=== PATIENT | female | born 1955 | race Caucasian/White ===

== ENCOUNTER 2017-01-01 14:01 | Inpatient (IN) ==
--- NOTE | 2016-12-31 16:29 | Discharge Summary ---
<Alana Calderon E - Last Filed: 12/31/16 16:26> Date of Encounter: 12/31/16 - Discharge Diagnosis (1) Arthritis of left hip Priority: Primary Status: Chronic (2) Osteoporosis Priority: Secondary Status: Chronic Qualifiers: Osteoporosis type: unspecified Presence of current pathological fracture: unspecified Qualified Code(s): M81.0 - Age-related osteoporosis without current pathological fracture (3) History of hepatitis Priority: Secondary Status: Chronic (4) HLD (hyperlipidemia) Priority: Secondary Status: Chronic Qualifiers: Hyperlipidemia type: unspecified Qualified Code(s): E78.5 - Hyperlipidemia , unspecified (5) History of rheumatic fever Priority: Secondary Status: Chronic (6) Psychiatric disorder Priority: Secondary Status: Chronic (7) BMI 27.0-27.9,adult Priority: Secondary Status: Chronic - Discharge Medications Home Medications: Aspirin Enteric Coated [Aspirin EC] 325 mg PO DAILY #21 tablet. 12/31/16 [Rx] OxyCODONE Immed Rel [Roxicodone 5 MG] 5 - 10 mg PO Q6HR PRN #40 tablet 12/31/16 [Rx] Alendronate Sodium [Fosamax] 70 mg PO FR 01/01/17 [History] Aspirin [Lo-Dose Aspirin EC] 81 mg PO DAILY 01/01/17 [History] Atorvastatin [Lipitor] 40 mg PO HS 01/01/17 [History] Cholecalciferol (D-3) [Vitamin D] 5,000 unit PO DAILY 01/01/17 [History] DiphenhydraMINE [Benadryl] 25 mg PO Q6HR PRN 01/01/17 [History] Docusate [Colace] 200 mg PO BID 01/01/17 [History] Esomeprazole Magnesium [Nexium] 40 mg PO BID 01/01/17 [History] Gabapentin [Neurontin] 300 mg PO HS 01/01/17 [History] Losartan [Cozaar] 25 mg PO DAILY 01/01/17 [History] Lurasidone [Latuda] 20 mg PO DAILY 01/01/17 [History] Meloxicam [Mobic] 15 mg PO DAILY 01/01/17 [History] Nitroglycerin [Nitrostat] 0.4 mg SL Q5M PRN 01/01/17 [History] Trospium Chloride [Trospium Chloride ER] 60 mg PO DAILY 01/01/17 [History] diazePAM [Valium] 2 mg PO TID PRN 01/01/17 [History] Allergies/Adverse Reactions: Allergies Amoxicillin Allergy (Verified 01/01/17 14:26) Hives Cortisone Allergy (Verified 01/01/17 14:26) Hives iodine Allergy (Verified 01/01/17 14:26) Blister linaclotide [From Linzess] Allergy (Verified 01/01/17 14:26) Rash Primary care physician: Satnam Wilson MD - Patient Status Disposition: Home, Self-Care Condition: Good - Discharge Instructions Follow Up With: Satnam Wilson MD [Primary Care Provider] - Cristian Nava MD [Partnered Physician] - 01/11/17 2:15 pm Additional Instructions: Discharge Instructions: Total Hip Replacement Please call [facility] ([phone]), your Primary Care Physician, or report to the Emergency Room if you have any of the following symptoms: Nausea, vomiting, fever greater that 101.5, swelling, chest pain, shortness of breath, increased pain/redness/drainage/odor for your incision site, numbness/ tingling, or any other concerning symptoms. ACTIVITY:Weight-bearing as tolerated for 8 weeks with hip dislocation precautions that physical therapy taught you. You may progress as tolerated under the guidance of your physical therapist. You do not need to sleep with a pillow between your legs. You can also seep on the operative side or on your stomach. MEDICATIONS: Upon discharge resume your home medications. Take all the medications as prescribed. Take a stool softener if taking narcotic pain medications. Stool softeners are only effective if you drink enough fluids. Drink 6-8 glass of water or fluids a day, unless this is not allowed for another health problem. Despite using stool softeners, if you haven't had a bowel movement in 3 days, please switch to a gentle laxative. Gentle laxatives are sold over the counter. You should have a bowel movement within 24 hours, if not call the office. You will be discharged from the hospital with a prescription for pain medication. You are encouraged to decrease the use of narcotic pain medication as tolerated. Should you require a refill, please call the office. [facility] prescribes narcotic pain medication for only 4-6 weeks after surgery. If you require pain medication beyond this time period, you may be referred to your Primary Care Physician or to the Pain Clinic for further evaluation. Plan ahead for refills on pain medication as many narcotics either need to be picked up at the office or mailed. It is best to call 48-72 hours in advance of needing a prescription refill so you don't run out of medication. To help control the post-operative pain, you may take NSAIDs (Aleve,Advil, Motrin, ibuprofen, naprosyn) or Tylenol as prescribed on the bottle in addition to the pain medication. ANTICOAGULATION (blood thinners): Continue your Aspirin, Lovenox or Coumadin as prescribed to help prevent a blood clot in the leg or in the lungs. As long as your incision remains dry and you tolerate the NSAIDs (Aleve, Advil, Motrin, Ibuprofen, Naprosyn), it is OK to use the NSAIDS while you are taking your anticoagulation medication. Should your incision start to drain, stop the NSAID and contact our office. Common symptoms of blood clot in the legs include: localized pain, swelling, calf tenderness, redness or discoloration of the skin. Blood clot in the lung symptoms include: shortness of breath, rapid pulse, sweating, and chest pain that worsens with deep breathing, coughing up blood, lightheadedness, feelings of anxiety. If you experience any of these symptoms notify your physician immediately, go to the emergency room, or if having trouble breathing, call 911. WOUND CARE: Leave the dressing on for 7 to 10days. You may change the dressing if it is saturated greater than 50%. Do not get the dressing wet at anytime. Wash your hands with antibacterial soap, rinse and dry prior to any wound care. If you have enrique the visiting nurse or rehab facility can remove the stapes 10-14 days after surgery and place steri-strips across the wound. Leave the steri-strips in place until they fall off on their own. You may let water from the shower run on top of the steri-strips. If you do not have a visiting nurse or rehab facility, you will need to return to the office at 10-14 days for the enrique to be removed. If you have itching or redness around the dressing call the office. FOLLOW-UP: Please follow up with your surgeon in the orthopedic clinic in 6 weeks from the day of surgery. If you have enrique that need to be removed, you will need to come back to the office in 10-14 days from the day of surgery. - Hospital Course Hospital course: Ms. Acevedo is a 61 year old female - Time Spent with Patient Total time spent providing and/or coordinating discharge services: - VTE Documentation of Mechanical Device: Venous foot pump, device <Kristi Majano - Last Filed: 01/02/17 17:15> Date of Encounter: 01/02/17 - Discharge Diagnosis (1) Status post total hip replacement, left Priority: Primary Status: Acute Comments: Uneventful post-operative course. Opsite dressing, leave intact until first post-operative visit. If dressing becomes >50% saturated, contact office, remove dressing and place appropriate dressing in its place. Do not allow for dressing to get wet. [place] in place, plan to remove at post-operative day #14-16. Total Joint Precautions x 6 weeks Apply cold therapy wrap 3-6x/day for 20 minutes at a time. Encourage ambulation throughout the day Use Incentive spirometer 10x/hour. Elevate affected extremity as tolerated. Brace: Wear hip Abductor pillow at night x 6 week Labs on day of discharge: Labs from last 24 hours 01/02/17 01/02/17 01/01/17 04:57 04:57 17:56 Hgb 10.3 L D 12.1 Hct 31.8 L 37.0 Sodium 135 L Potassium 4.2 Chloride 102 Carbon Dioxide 26 BUN 15 Creatinine 0.86 Est GFR ( Amer) > 60 Est GFR (Non-Af Amer) > 60 BUN/Creatinine Ratio 17 Glucose 162 H Calculated Osmolality 284 Calcium 8.6 - Impressions ITS Impressions Hip X-Ray 01/01/17 01:00 IMPRESSION: 1. There is a left total hip arthroplasty in satisfactory position. There is no evidence of instrumentation loosening or failure. D/ / 01/01/2017 18:26:53 Jamil Gibson MD / fatou Interpreting Provider: Jamil Gibson MD Date of admission: 01/01/17 19:26 Primary care physician: Satnam Wilson MD Consults: 01/01/17 20:17 Consult to Nurse Navigator [CONS] Routine Comment: ortho navigator Consult to Occupational Therapy [CONS] Routine Comment: Evaluate, develop and implement POC Reason for Consult: total hip replacement Consult to Physical Therapy [CONS] Routine Comment: Evaluate, develop and implement POC Reason for Consult: total hip replacement Consult to Trailer Chief [CONS] Routine Reason for SW Consult: post op joint replacement RT Post Op Consult [CONS] Routine - Hospital Course Hospital course: Ms. Acevedo is a 61 year old female - Time Spent with Patient Total time spent providing and/or coordinating discharge services: <Cristian Nava - Last Filed: 01/03/17 09:31> Date of Encounter: 01/03/17 Time of Encounter: 09:30 - Discharge Diagnosis (1) Arthritis of left hip Priority: Primary Status: Chronic (2) History of hepatitis Priority: Secondary Status: Chronic (3) Osteoporosis Priority: Secondary Status: Chronic Qualifiers: Osteoporosis type: unspecified Presence of current pathological fracture: unspecified Qualified Code(s): M81.0 - Age-related osteoporosis without current pathological fracture (4) HLD (hyperlipidemia) Priority: Secondary Status: Chronic Qualifiers: Hyperlipidemia type: unspecified Qualified Code(s): E78.5 - Hyperlipidemia , unspecified (5) History of rheumatic fever Priority: Secondary Status: Chronic (6) Psychiatric disorder Priority: Secondary Status: Chronic (7) BMI 27.0-27.9,adult Priority: Secondary Status: Chronic (8) Acute blood loss anemia Priority: Primary Status: Acute (9) Status post total hip replacement, left Priority: Primary Status: Acute Primary care physician: Satnam Wilson MD - Patient Status Functional capacity at discharge: uses cane/walker Overall status at discharge: patient is back to baseline - Hospital Course Hospital course: Ms. Acevedo is a 61 year old female Status post left total hip replacement. Patient had an uneventful postop course received antibiotics and physical therapy. Patient having problems with itching related to pain medication. Discharge home with Benadryl and aspirin for DVT prophylaxis. - Time Spent with Patient Total time spent providing and/or coordinating discharge services:
--- NOTE | 2017-01-01 14:13 | History & Physical Report ---
Date of Encounter: 01/01/17 Time of Encounter: 14:12 24 Hour HP Update - Instructions Instructions: If the History and Physical is less than 30 days old and was completed prior to A.M. admission and or procedure and has NOT been updated on calendar day of procedure please complete this update prior to performing procedure. - Update Patient reports changes in Medical Condition: No Changes in examination, assessment, or condition: No Changes in Medication: No Preop tests/diagnostics Reviewed: Yes Surgery Remains Indicated: Yes Consent for Planned Operative Procedure(s) Verified: Yes - Pre-Operative Checklist Preoperative Checklist Indicated: No Prophylactic Antibiotic Ordered: Yes Is VTE Prophylaxis Indicated?: Yes
[2017-01-01] MEDS ORDERED: CeFAZolin Pre 2,000 MG/100 ML 2,000 MG/100 ML BAG IVPB ONE (14:23)
--- NOTE | 2017-01-01 14:23 | Anesthesia Evaluation PreOp ---
Date of Encounter: 01/01/17 Time of Encounter: 14:20 - Past History Planned Operation: Left Total Hip Arthroplasty Cardiac History: HTN, Hyperlipidemia Pulmonary History: Former smoker (quit 9 years ago, smoked for 25+ years) GLUE MAKER BONE History: Denies Any Significant HX Other Medical History: GERD, Other (anxiety) Anesthesia History: No Prior Anesthetic Complications, Past Anesthesia Alcohol Use: none Drug use: none Medications and Allergies Aspirin Enteric Coated [Aspirin EC] 325 mg PO DAILY #21 tablet. 12/31/16 [Rx] OxyCODONE Immed Rel [Roxicodone 5 MG] 5 - 10 mg PO Q6HR PRN #40 tablet 12/31/16 [Rx] Alendronate Sodium [Fosamax] 70 mg PO FR 01/01/17 [History] Aspirin [Lo-Dose Aspirin EC] 81 mg PO DAILY 01/01/17 [History] Atorvastatin [Lipitor] 40 mg PO HS 01/01/17 [History] Cholecalciferol (D-3) [Vitamin D] 5,000 unit PO DAILY 01/01/17 [History] DiphenhydraMINE [Benadryl] 25 mg PO Q6HR PRN 01/01/17 [History] Docusate [Colace] 200 mg PO BID 01/01/17 [History] Esomeprazole Magnesium [Nexium] 40 mg PO BID 01/01/17 [History] Gabapentin [Neurontin] 300 mg PO HS 01/01/17 [History] Losartan [Cozaar] 25 mg PO DAILY 01/01/17 [History] Lurasidone [Latuda] 20 mg PO DAILY 01/01/17 [History] Meloxicam [Mobic] 15 mg PO DAILY 01/01/17 [History] Nitroglycerin [Nitrostat] 0.4 mg SL Q5M PRN 01/01/17 [History] Trospium Chloride [Trospium Chloride ER] 60 mg PO DAILY 01/01/17 [History] diazePAM [Valium] 2 mg PO TID PRN 01/01/17 [History] Allergies Amoxicillin Allergy (Verified 01/01/17 14:26) Hives Cortisone Allergy (Verified 01/01/17 14:26) Hives iodine Allergy (Verified 01/01/17 14:26) Blister linaclotide [From Linzess] Allergy (Verified 01/01/17 14:26) Rash - Meds/Allergy Pre-op Review Medications Reviewed: Yes Allergies Reviewed: Yes Beta Blockers on Current Med List: No Anesthesia Results - Labs Laboratory Tests 12/25/16 12/25/16 12/25/16 16:03 16:03 16:03 WBC 6.2 Hgb 12.5 Hct 38.3 Plt Count 240 PT 10.8 INR 1.0 APTT 32.9 Sodium 141 Potassium 3.6 BUN 11 Creatinine 0.78 - Imaging EKG: report reviewed (07/07/2016 SR) Additional studies: 12/08/2013 LHC E F 60% minimal atherosclerotic CAD Anesthesia Exam O2 Sat Height 1.6 m Height 1.6 m Weight 68.946 kg Weight 68.946 kg O2 Sat by Pulse Oximetry 98 Vital Signs Temp Pulse Resp BP Pulse Ox 98.3 F 76 18 123/87 98 01/01/17 14:29 01/01/17 14:29 01/01/17 14:29 01/01/17 14:29 01/01/17 14:29 Height: 5'3'' Weight: 152 lbs NPO (# of Hours): 8 Pain Scale: 0 Pain Scale Used: Numeric (1 - 10) - HEENT Pupil (Motor): EOMI Mallampati: II Teeth: Edentulous Denture Type: Upper: Complete, Lower: Complete Oral Opening: Greater than 3 - GLUE MAKER BONE LOC: Oriented GLUE MAKER BONE Motor: Normal RUE, Normal LUE, Normal RLE, Normal LLE, Normal Face GLUE MAKER BONE Sensory: Normal: RUE, LUE, RLE, LLE, Face - Cardiac Rhythm: Regular Murmur: None - Pulmonary Breath Sounds: bilateral Clear Respiratory Effort: Symmetrical Anesthesia Assess/Plan ASA Score: 2 Modified [place] Scale for Level of Consciousness: Cooperative, oriented, and tranquil Anesthetic Plan: General, Regional Monitoring Plan: Standard Monitors Recovery Plan: PACU
[2017-01-01] MEDS ORDERED: Ringers Solution, Lactated 1,000 ML IVC SCH ×2 (14:30→20:17)
[2017-01-01] MEDS ORDERED: *HR* HYDROmorphone (PF) 1 MG/ML SYRINGE IVP PRN ×2 (15:18→20:17)
[2017-01-01] MEDS ORDERED: *HR* Meperidine 25 MG/ML SYRINGE IVP PRN (15:18)
[2017-01-01] MEDS ORDERED: *HR* Promethazine 25 MG/ML VIAL IVP PRN (15:18)
[2017-01-01] MEDS ORDERED: Ondansetron 4 MG/2 ML VIAL ONE (15:22)
[2017-01-01] MEDS ORDERED: *HR* Propofol 200 MG/20 ML VIAL IVP ONE ×2 (15:22→15:23)
[2017-01-01] MEDS ORDERED: Lidocaine -MPF 2% 2 ML VIAL ONE (15:22)
[2017-01-01] MEDS ORDERED: *HR* Succinylcholine 200 MG/10 ML VIAL IVP ONE (15:22)
[2017-01-01] MEDS ORDERED: *HR* FentaNYL (PF) 100 MCG/2 ML VIAL ONE (15:23)
[2017-01-01] MEDS ORDERED: *HR* Midazolam HCl 2 MG/2 ML VIAL ONE ×2 (15:23→16:13)
[2017-01-01] MEDS ORDERED: Ketorolac 30 MG/ML VIAL ONE (15:36)
[2017-01-01] MEDS ORDERED: Bupivacaine/Clonidine Syringe 1 EACH SYRINGE ONE ×2 (16:14→16:17)
--- NOTE | 2017-01-01 17:05 | Anesthesia Procedures ---
Date of Encounter: 01/01/17 Time of Encounter: 16:30 Procedures: Anesthesia - Nerve Block Procedure Date: 01/01/17 Time: 16:30 Checklist: Correct Patient Identifier, Correct procedure, History checked Correct side: Left Blood Thinner: No Monitor Applied: EKG, BP, Pulse Oximetry Supplemental Oxygen via Nasal Cannula (L/min): 2 Sedation: Versed (mg): 4 Sedation: Fentanyl (mcg): 100 Indication: Post Op Analgesia Block Type: Other (fascia illiaca block) Sterile Technique: Yes Ultrasound used: Yes Anatomy identified: Yes Visual spread of Local: Yes Neuro Stimulation: No Blood on Needle Aspiration: No Smooth Injection of Local: Yes Pain with Injection of Local: No Prep: Chlorhexadine Needle: 22 x 50 mm Stimuplex Local: 0.25% Bupivicaine w/Clonidine 20 mcg/cc Volume (cc): 60 Number of Attempts: 1 Complications: None/effective block Vitals: vss
[2017-01-01] MEDS ORDERED: *HR* HYDROmorphone 2 MG/ML SYRINGE ONE (17:11)
[2017-01-01] MEDS ORDERED: EPHEDrine 50 MG/ML VIAL ONE (17:25)
--- NOTE | 2017-01-01 17:26 | Orthopedic Operative Note ---
Date of procedure: 01/01/17 Pre-op diagnosis: Left hip arthritis Post-op diagnosis: same Procedure: Procedure: Left Total Hip Replacment Estimated blood loss: 200 cc Hardware: Metal and polyethylene replacement. Biomet DM Cup: 50 G7 fin cup Femoral size 12 echo full profile lateralized stem Head: -6 head with Aneta Procedural Notes: Grade 4 arthritic changes femoral head acetabular socket. Operative procedure: The patient was brought to the operating room and placed on the operating room table. After general anesthesia was administered the patient was placed in the lateral decubitus position with the operative leg up. All pressure points were padded appropriately and the head was stabilized in the neutral position. The operative extremity was prepped and draped in the sterile surgical fashion patient received IV antibiotic prior to skin incision. A standard posterior approach is made to the operative hip, the incision was made through the skin and subcutaneous tissue hemostasis was obtained with Bovie cautery. Using careful sharp dissection the fascia was identified and incised exposing the external rotators. The external rotators were released off the greater trochanter and tagged with #2 FiberWire suture. The capsule was T'd open and the hip was brought into internal rotation. Patient noted to have grade 4 arthritic changes femoral head. The femoral neck cut was made at the appropriate level. An anterior capsulotomy was performed for the anterior retractor. Soft tissues removed from the acetabulum. Patient noted to have grade 4 arthritic changes acetabulum. Acetabulum was first reamed medially, and then reamed in 15 degrees of anteversion and 45 degrees off the horizontal. It was reamed up to the appropriate size 50. The appropriate-sized 50 acetabular cup was impacted in place in 15 degrees of anteversion and 45 degrees off the horizontal. This had good fit and fixation. The hip was brought back in to internal rotation and prepared with the box spring upholsterer followed by the canal finder followed by broaching process in 20 degrees anteversion. It was broached up to the appropriate size 12 . The femoral implant was impacted in place in 20 degrees of anteversion. Trial reduction found the hip to be stable with - 6 head and Aneta. The trials were removed and the real implants were impacted in place. The hip was reduced, patient had apparent equal leg lengths. The hip had excellent stability with forward flexion to 90 degrees adduction of 30 degrees and internal rotation of 60 degrees. The hip had no shuck. The hips after 2 minutes with a Betadine saline solution. It was irrigated out with 2 L of pulse irrigation. The PA closed the hip. Fascia was closed with a running #2 PDS suture. The deep tissue was irrigated and closed deep with #1 PDS suture superficially with 0 PDS suture and skin was closed with Dermabond and skin enrique. The patient was placed in a sterile dressing and abduction pillow. The patient was extubated and transferred to the recovery room in stable condition. Anesthesia: GETA Surgeon: Cristian Nava Automatic Bandsaw Tender: Kristi Majano Condition: stable Disposition: PACU
[2017-01-01] MEDS ORDERED: *HR* Enoxaparin 30 MG/0.3 ML SYRINGE SQ SCH (18:00)
[2017-01-01 18:12] LABS: Hemoglobin 12.1 g/dL (11.5-15.4)
--- NOTE | 2017-01-01 18:57 | Anesthesia Evaluation Post Op ---
Date of Encounter: 01/01/17 Time of Encounter: 19:00 - Vital Signs Vital Signs: Vital Signs/O2 Sat/Glucose, Most Current Temp Pulse Resp BP Pulse Ox 01/01/17 18:42 88 17 131/80 95 01/01/17 18:32 91 16 124/89 96 01/01/17 18:22 97.8 F 90 18 141/91 96 01/01/17 18:12 90 12 156/87 91 01/01/17 18:02 88 12 148/106 93 01/01/17 17:52 97.1 F L 90 12 145/96 97 01/01/17 16:10 66 18 107/75 100 - Lungs Lungs: Clear Ascult./Percussion - Airway Airway: Non-obstructed - Cardiovascular Regular Rate - Mental Status Mental Status: Alert & Oriented, Answers Appropriately - Pain Pain Scale: 2 - Nausea Vomiting Nausea Vomiting: Not Present - Hydration Hydration: Ice chips - Discharge PostOp Status: Transfer Patient to floor
[2017-01-01] MEDS ORDERED: MOM Conc 10 ML UD.LIQ PO PRN (20:17)
[2017-01-01] MEDS ORDERED: diazePAM 2 MG TABLET PO PRN (20:17)
[2017-01-01] MEDS ORDERED: *HR* OxyCODONE Immed Rel 5 MG TABLET PO PRN (20:17)
[2017-01-01] MEDS ORDERED: Naloxone 0.4 MG/ML INJ IVP PRN (20:17)
[2017-01-01] MEDS ORDERED: Temazepam 15 MG CAPSULE PO PRN (20:17)
[2017-01-01] MEDS ORDERED: Nitroglycerin 0.4 MG TAB.SUBL SL PRN (20:17)
[2017-01-01] MEDS ORDERED: Sennosides 8.6 MG TABLET PO PRN (20:17)
[2017-01-01] MEDS ORDERED: Ondansetron 4 MG/2 ML VIAL IVP PRN (20:17)
[2017-01-01] MEDS: Ascorbic Acid 500 MG TABLET PO SCH (22:01)
[2017-01-01] MEDS: Gabapentin 300 MG CAPSULE PO SCH (22:01)
[2017-01-01] MEDS: ceFAZolin 2,000 MG in D5% in Water 100 ML IVPB SCH (22:01)
[2017-01-01] MEDS: *HR* OxyCODONE Immed Rel 5 MG TABLET PO PRN (22:04)
[2017-01-02] MEDS: ceFAZolin 2,000 MG in D5% in Water 100 ML IVPB SCH (00:39)
[2017-01-02] MEDS: *HR* Enoxaparin 30 MG/0.3 ML SYRINGE SQ SCH ×2 (05:21→16:40)
[2017-01-02] MEDS: *HR* OxyCODONE Immed Rel 5 MG TABLET PO PRN ×4 (05:22→20:53)
[2017-01-02 05:45] LABS: Hematocrit 31.8 % (35.3-44.9)
[2017-01-02 05:52] LABS: BUN/Creatinine Ratio 17 (6-26); Blood Urea Nitrogen 15 mg/dL (7-20); Calcium 8.6 mg/dL (8.6-10.8); Carbon Dioxide 26 mEq/L (19-29); Chloride 102 mEq/L (98-109); Glucose 162 mg/dL (70-99); Osmolality,Calculated 284 (280-300); Potassium 4.2 mEq/L (3.5-4.5); Sodium 135 mEq/L (136-145); eGFR For African Americans > 60 (> 60); eGFR For Non-African Americans > 60 (> 60)
[2017-01-02 05:53] LABS: Hemoglobin 10.3 g/dL (11.5-15.4)
--- NOTE | 2017-01-02 06:41 | Orthopedics Progress Note ---
Date of Encounter: 01/02/17 Time of Encounter: 06:40 - Assessment and Plan (1) Arthritis of left hip Current Visit: Yes Status: Chronic (2) History of hepatitis Current Visit: Yes Status: Chronic (3) Osteoporosis Current Visit: Yes Status: Chronic Qualifiers: Osteoporosis type: unspecified Presence of current pathological fracture: unspecified Qualified Code(s): M81.0 - Age-related osteoporosis without current pathological fracture (4) HLD (hyperlipidemia) Current Visit: Yes Status: Chronic Qualifiers: Hyperlipidemia type: unspecified Qualified Code(s): E78.5 - Hyperlipidemia , unspecified (5) History of rheumatic fever Current Visit: Yes Status: Chronic (6) Psychiatric disorder Current Visit: Yes Status: Chronic (7) BMI 27.0-27.9,adult Current Visit: Yes Status: Chronic Subjective Interval history: Patient was seen this morning doing well without complaints. Afebrile vital signs stable. Operative extremity: Neurovascularly intact Dressing clean dry and intact Calves nontender Assessment and plan: Continue with postoperative care Hematocrit 31 Objective Vital signs: Vital Signs Temp Pulse Resp BP Pulse Ox 01/02/17 04:10 98.6 F 77 14 95/66 98 01/02/17 01:00 98.4 F 81 15 109/71 97 01/01/17 20:38 98.0 F 96 18 115/61 95 01/01/17 20:08 95 01/01/17 20:05 97.6 F 88 16 122/74 01/01/17 19:50 98.3 F 93 16 119/79 95 01/01/17 18:52 98.2 F 90 14 134/94 99 01/01/17 18:42 88 17 131/80 95 01/01/17 18:32 91 16 124/89 96 01/01/17 18:22 97.8 F 90 18 141/91 96 01/01/17 18:12 90 12 156/87 91 01/01/17 18:02 88 12 148/106 93 01/01/17 17:52 97.1 F L 90 12 145/96 97 01/01/17 16:10 66 18 107/75 100 01/01/17 14:29 98.3 F 76 18 123/87 98 Intake and Output 01/01/17 01/01/17 01/02/17 15:59 23:59 07:59 Intake Total 100 / 100 Output Total 400 / 400 Balance -300 / -300 Intake: IV Fluids 100 / 100 Ancef 2,000 MG In 100 / 100 Dextrose 5% 100 ML @ 200 mls/hr IVPB Q8HR [facility] Rx#: [id number] Output: Urine 200 / 200 Estimated Blood Loss 200 / 200 Other: Weight 68.946 kg 76.7 kg Patient Weight 01/02/17 23:59 Weight 76.7 kg - Labs CBC & BMP: 01/02/17 04:57 01/02/17 04:57 Labs: Abnormal lab results Hgb 10.3 g/dL (11.5-15.4) L D 01/02/17 04:57 Hct 31.8 % (35.3-44.9) L 01/02/17 04:57 Sodium 135 mEq/L (136-145) L 01/02/17 04:57 Glucose 162 mg/dL (70-99) H 01/02/17 04:57 - VTE Documentation of Mechanical Device: Venous foot pump, device Consult Discharge Plan - Plan Referrals: Satnam Wilson MD [Primary Care Provider] -
[2017-01-02] MEDS: TROSPIUM CHLORIDE 60 MG PO SCH (07:52)
[2017-01-02] MEDS: Aspirin Enteric Coated 81 MG Tablet PO SCH (08:10)
[2017-01-02] MEDS: Multivit/Ca/Min/Fe/FA 1 TAB TABLET PO SCH (08:10)
[2017-01-02] MEDS: Cholecalciferol (D-3) 1,000 UNIT TABLET PO SCH (08:10)
[2017-01-02] MEDS: Ascorbic Acid 500 MG TABLET PO SCH ×2 (08:10→16:40)
[2017-01-02] MEDS: Lurasidone 20 MG TABLET PO SCH (08:10)
--- NOTE | 2017-01-02 17:15 | Event Note ---
Date of Encounter: 01/02/17 Time of Encounter: 13:00 Patient seen at bedside. Pain control: adequate All questions and concerns addressed. Educated on use of incentive spirometer, ambulation, and hydration. Patient educated on post-operative restrictions and care. Addressed: No new concerns, Wheelchair RX sent in afternoon for patient to go home D/C plan:.D/C 01/03 with outpatient PT
[2017-01-02] MEDS: Gabapentin 300 MG CAPSULE PO SCH (20:53)
[2017-01-03] MEDS: *HR* OxyCODONE Immed Rel 5 MG TABLET PO PRN ×3 (00:57→08:53)
[2017-01-03 05:19] LABS: Hematocrit 28.1 % (35.3-44.9); Hemoglobin 9.2 g/dL (11.5-15.4)
[2017-01-03 05:28] LABS: BUN/Creatinine Ratio 21 (6-26); Blood Urea Nitrogen 16 mg/dL (7-20); Calcium 8.3 mg/dL (8.6-10.8); Carbon Dioxide 26 mEq/L (19-29); Chloride 102 mEq/L (98-109); Glucose 100 mg/dL (70-99); Osmolality,Calculated 281 (280-300); Sodium 135 mEq/L (136-145); eGFR For African Americans > 60 (> 60); eGFR For Non-African Americans > 60 (> 60)
[2017-01-03 05:31] LABS: Potassium 3.8 mEq/L (3.5-4.5)
[2017-01-03] MEDS: *HR* Enoxaparin 30 MG/0.3 ML SYRINGE SQ SCH (06:04)
[2017-01-03 07:32] VITALS: BP 106/66
[2017-01-03] MEDS: Lurasidone 20 MG TABLET PO SCH (08:45)
[2017-01-03] MEDS: Ascorbic Acid 500 MG TABLET PO SCH (08:46)
[2017-01-03] MEDS: Aspirin Enteric Coated 81 MG Tablet PO SCH (08:46)
[2017-01-03] MEDS: Multivit/Ca/Min/Fe/FA 1 TAB TABLET PO SCH (08:46)
[2017-01-03] MEDS: Cholecalciferol (D-3) 1,000 UNIT TABLET PO SCH (08:47)
[2017-01-03] MEDS: TROSPIUM CHLORIDE 60 MG PO SCH (08:55)
[2017-01-05] MEDS ORDERED: Alendronate Sodium [Fosamax] 70 MG PO SCH (14:55)
== END 2017-01-03 14:06 | disposition home or self-care (01) | DRG 301 ==
LOC: SAMDAY 14:01 → 3NENU 19:26
PROVIDERS: ADMIT Orthopaedic Surgery; ATTEND Orthopaedic Surgery